=== PATIENT | male | born 1975 | race Caucasian/White ===

== ENCOUNTER 2019-04-19 22:44 | Emergency (ER) | payer SELFPAY ==
[2019-04-19 22:49] VITALS: BMI 32.1
[2019-04-19 23:35] LABS: BASOPHILS 0.2 % (0-2); EOSINOPHILS 1.9 % (0-7); HEMATOCRIT 45.8 % (42.0-54.0); IMMATURE GRANULOCYTES 0.2 % (0-5); LYMPHOCYTES 21.1 % (15-50); MCH 30.9 pg (26.0-34.0); MCHC 34.9 g/dL (31.0-37.0); MCV 88.6 fL (80.0-100.0); MEAN PLATELET VOLUME 10.1 fL (7.4-10.4); MONOCYTES 5.5 % (2-11); NEUTROPHILS 71.1 % (40-80); PLATELET COUNT 214 10x3/uL (130-400); RBC 5.17 10x6/uL (4.20-6.10); RDW 12.7 % (11.5-14.5); WBC 13.8 10x3/uL (4.8-10.8)
[2019-04-19 23:48] LABS: ALBUMIN 4.3 g/dL (3.4-5.0); ANION GAP 14.4 mmol/L (8-16); BILIRUBIN - TOTAL 0.35 mg/dL (0.2-1.3); CALCIUM 9.2 mg/dL (8.5-10.1); CREATININE - SERUM 1.2 mg/dL (0.6-1.3); POTASSIUM - SERUM 4.4 mmol/L (3.5-5.1); PROTEIN - SERUM 7.8 g/dL (6.4-8.2)
[2019-04-20 02:37] VITALS: BP 116/78
== END 2019-04-20 02:28 | disposition home or self-care (01) ==
LOC: D.ER 22:44
PROVIDERS: Family Medicine
DX: R22.31 Localized swelling, mass and lump, right upper limb (principal)